=== PATIENT | female | born 1985 | race Caucasian/White ===

== ENCOUNTER 2017-03-17 12:14 | Observation (INO) | payer OTHER ==
[2017-03-17] MEDS ORDERED: NS 1,000 ML IV ONE (12:54)
--- NOTE | 2017-03-17 12:57 | EDPHY ---
HPI/HX/ROS/PE/MDM Narrative: CHIEF COMPLAINT: Vaginal bleeding HPI: The patient is a 31 y/o female complaining of vaginal bleeding since March 01. About 6 months ago she started taking the mini pill for control but she experienced constant nausea and discontinued taking it 3 months ago and has not taken control since. She had her last normal menstrual period January 17. Her menstrual period started about 10 days late on March 01. Immediately her menstrual bleeding was heavier than normal with more severe cramping and lots of clots. She was evaluated by internal medicine with no etiology identified. Her bleeding had almost stopped a few days ago but returned after she exercised. She has associated pain in the lower right quadrant. She has no other associated symptoms. She was once and went into labor at 30 weeks for unknown reasons. REVIEW OF SYSTEMS: Aside from elements discussed in the HPI, a comprehensive 10-point review of systems was reviewed and is negative. PMH: with labor at 30 weeks SOCIAL HISTORY: Lives in [place], , employed PHYSICAL EXAM: General:Patient is alert, in no acute distress. ENT:Eyes are normal to inspection. ENT inspection normal. Neck: Normal inspection. Full range of motion. Respiratory:No respiratory distress. Breath sounds normal bilaterally. Cardiovascular: Regular rate and rhythm. Strong peripheral pulses. Normal cap refill. Abdomen:The abdomen is nontender to palpation. There are no peritoneal signs. There are normal bowel sounds. Back: Normal to inspection. No tenderness to palpation. Skin: Normal color. No rash. Warm and dry. Extremities: Normal appearance. Full range of motion. Neuro: Oriented x3. Normal motor function. Normal sensory function. ED Course: Study: Ultrasound of the pelvis Indication: Prolonged vaginal bleeding Results: Ultrasound of the pelvis was obtained. The results of the study are: 5 cm complex right adnexal mass with moderate fluid consistent with a tubal . The study was read by the radiologist, Dr. Ochoa. I viewed the images myself on the PACS system. The US and positive beta-HCG indicate an ectopic is likely. [employer] paged. [id number]: Dr. Motley, [employer] responded and will evaluate the patient. I reassessed patient and informed her of the results of her workup. Patient remains comfortable and hemodynamically stable. MDM: This patient presents with signs and symptoms of ectopic , confirmed by US. OBGYN will admit. No signs of hemorrhagic shock, appendicitis, diverticulitis, IUP or molar . - Data Points Imaging Results: Imaging Impressions Pelvic/Renal Ultrasound 03/17/17 12:54 Impression: 1. Negative for intrauterine . 2. Mass between uterus and right ovary, suspicious of ectopic (tubal) . 3. Moderate amount of free fluid, probably blood, in the pelvis. I telephoned results to Dr. Crispin Mix at 1409 hours. Laboratory Results: Laboratory Results 03/17/17 13:00 03/17/17 13:00 03/17/17 03/17/17 03/17/17 13:00 13:00 13:00 WBC RBC Hgb Hct MCV MCH MCHC RDW Plt Count MPV Neut % (Auto) Lymph % (Auto) Wetzel % (Auto) Eos % (Auto) Baso % (Auto) Nucleat RBC Rel Count Absolute Neuts (auto) Absolute Lymphs (auto) Absolute Monos (auto) Absolute Eos (auto) Absolute Basos (auto) Absolute Nucleated RBC Immature Gran % Immature Gran # PT INR APTT Sodium 138 mEq/L mEq/L (134-144) Potassium 3.6 mEq/L mEq/L (3.5-5.2) Chloride 102 mEq/L mEq/L (97-110) Carbon Dioxide 24 mEq/l mEq/l (22-31) Anion Gap 12 mEq/L mEq/L (8-16) BUN 14 mg/dL mg/dL (7-23) Creatinine 0.8 mg/dL mg/dL (0.6-1.0) Estimated GFR > 60 Glucose 95 mg/dL mg/dL (70-100) Calcium 9.4 mg/dL mg/dL (8.5-10.4) Beta HCG, Qual POSITIVE Beta HCG, Quant 2729.40 mIU/mL H mIU/mL (0.00-4.83) 03/17/17 03/17/17 13:00 13:00 WBC 9.45 10^3/uL 10^3/uL (3.80-9.50) RBC 3.72 10^6/uL L 10^6/uL (4.18-5.33) Hgb 12.1 g/dL L g/dL (12.6-16.3) Hct 34.3 % L % (38.0-47.0) MCV 92.2 fL fL (81.5-99.8) MCH 32.5 pg pg (27.9-34.1) MCHC 35.3 g/dL g/dL (32.4-36.7) RDW 12.7 % % (11.5-15.2) Plt Count 228 10^3/uL 10^3/uL (150-400) MPV 9.0 fL fL (8.7-11.7) Neut % (Auto) 79.7 % H % (39.3-74.2) Lymph % (Auto) 12.7 % L % (15.0-45.0) Wetzel % (Auto) 5.9 % % (4.5-13.0) Eos % (Auto) 0.7 % % (0.6-7.6) Baso % (Auto) 0.5 % % (0.3-1.7) Nucleat RBC Rel Count 0.0 % % (0.0-0.2) Absolute Neuts (auto) 7.52 10^3/uL H 10^3/uL (1.70-6.50) Absolute Lymphs (auto) 1.20 10^3/uL 10^3/uL (1.00-3.00) Absolute Monos (auto) 0.56 10^3/uL 10^3/uL (0.30-0.80) Absolute Eos (auto) 0.07 10^3/uL 10^3/uL (0.03-0.40) Absolute Basos (auto) 0.05 10^3/uL 10^3/uL (0.02-0.10) Absolute Nucleated RBC 0.00 10^3/uL 10^3/uL (0-0.01) Immature Gran % 0.5 % % (0.0-1.1) Immature Gran # 0.05 10^3/uL 10^3/uL (0.00-0.10) PT 13.8 SEC SEC (12.0-15.0) INR 1.07 (0.83-1.16) APTT 22.2 SEC L SEC (23.0-38.0) Sodium Potassium Chloride Carbon Dioxide Anion Gap BUN Creatinine Estimated GFR Glucose Calcium Beta HCG, Qual Beta HCG, Quant Medications Given: Discontinued Medications Sodium Chloride (Ns) 1,000 mls @ 0 mls/hr IV EDNOW ONE; Wide Open PRN Reason: Protocol Stop: 03/17/17 12:55 Last Admin: 03/17/17 13:44 Dose: 1,000 mls General Time Seen by Provider: 03/17/17 12:43 Initial Vital Signs: Initial Vital Signs Temperature (C) 36.4 C 03/17/17 12:29 Heart Rate 91 03/17/17 12:29 Respiratory Rate 15 03/17/17 12:29 Blood Pressure 125/89 H 03/17/17 12:29 O2 Sat (%) 98 03/17/17 12:29 O2 Delivery Mode Room Air Allergies/Adverse Reactions: No Known Allergies Allergy (Unverified 03/17/17 12:26) Home Medications: Medication Instructions Recorded Herbals/Supplements -Info Only 1 ea PO DAILY 03/17/17 Departure - Departure Disposition: Home, Routine, Self-Care Clinical Impression: Ectopic Qualifiers: Location of ectopic : tubal Intrauterine status: without intrauterine Laterality: right Qualified Code(s): O00.101 - Right tubal without intrauterine Condition: Good Report Scribed for: Crispin Mix Report Scribed by: Luz Elena Wallace Date of Report: 03/17/17 Time of Report: 12:44 Physician Review and Approval Statement: Portions of this note were transcribed by an ED scribe. I personally performed the history, physical exam, and medical decision making; and confirm the accuracy of the information in the transcribed note.
[2017-03-17 13:09] LABS: % IMMATURE GRANULYOCYTES 0.5 % (0.0-1.1); ABSOLUTE IMMATURE GRANULOCYTES 0.05 10^3/uL (0.00-0.10); ADD DIFF? NO; ADD MORPH? NO; ADD SCAN? NO; ATYPICAL LYMPHOCYTE FLAG 0 (0-99); FRAGMENT RBC FLAG 0 (0-99); HEMATOCRIT 34.3 % (38.0-47.0); HEMOGLOBIN 12.1 g/dL (12.6-16.3); LEFT SHIFT FLG 0 (0-99); LIPEMIA HEMOLYSIS FLAG 90 (0-99); MEAN CELL HEMOGLOBIN 32.5 pg (27.9-34.1); MEAN CELL HEMOGLOBIN CONCENTR. 35.3 g/dL (32.4-36.7); MEAN CELL VOLUME 92.2 fL (81.5-99.8); PLATELET CLUMPS FLAG 10 (0-99); PLATELET COUNT 228 10^3/uL (150-400); RED BLOOD CELL COUNT 3.72 10^6/uL (4.18-5.33); RED CELL DISTRIBUTION WIDTH 12.7 % (11.5-15.2)
[2017-03-17 13:19] LABS: APTT 22.2 SEC (23.0-38.0); INR 1.07 (0.83-1.16); PROTIME(PATIENT) 13.8 SEC (12.0-15.0)
[2017-03-17 13:30] LABS: ANION GAP 12 mEq/L (8-16); CALCIUM 9.4 mg/dL (8.5-10.4); CARBON DIOXIDE 24 mEq/l (22-31); CHLORIDE 102 mEq/L (97-110); CREATININE 0.8 mg/dL (0.6-1.0); GLOMERULAR FILTRATION RATE > 60; GLUCOSE 95 mg/dL (70-100); POTASSIUM 3.6 mEq/L (3.5-5.2); SODIUM 138 mEq/L (134-144)
--- NOTE | 2017-03-17 21:58 | GHP ---
[f rep st] PREOP HISTORY AND PHYSICAL DATE OF ADMISSION: 03/17/2017 ADMISSION DIAGNOSIS: Suspected ectopic . HISTORY OF PRESENT ILLNESS: The patient is a 31-year-old, 2, para 1-0-0-1, who presented to the emergency room after sudden onset of severe pain in the right lower quadrant earlier today. The patient is still breast-feeding. In September, she decided to get on more reliable contraception and star darrel the mini-pill. She was on the mini-pill for 3 months and then stopped secondary to nausea. She had a regular menstrual cycle on January 17, and her cycle after that was slightly late, so she too k a test at the end of January the beginning of February, which were all negative. She beg an bleeding on March 01. Her period was a bit more painful than normal, but she had just started a parasite cleanse and thought it was the parasites leaving her body. The patient had an episode of s evere right-sided pain on March 05. The pain resolved on its own. The next day she passed 2 modera te-sized globs of tissue. The patient did see a primary care doctor who said he did not know what th e tissue was, but maybe she had a tubal that had miscarried. He did not order an ultrasoun d or do any lab. The patient did not take a test at any point during this time. The patie nt stopped bleeding after 2 weeks. She began having increased pain again this morning and brownish b leeding and discomfort. She called her to come home from work and was found to be somewhat p dana, diaphoretic, and experiencing 9/10 pain, but by the time they got to the emergency room, her patricia n had essentially resolved to a 2/10 on the pain scale. She did not necessitate any pain medication. She was evaluated in the emergency room and continued to be essentially pain-free except for when s he pushed on her right lower quadrant. The patient is now having some bright red bleeding, but small amounts, but overall is hungry, wanting to eat, not uncomfortable and resting with her son and her h usband. We had a long discussion about management options of expectant management as an outpatient v ersus proceeding to the operating room versus inpatient observation and the patient elected to procee d with inpatient observation and will be re-evaluated in the morning. MEDICAL HISTORY: Negative. MEDICATIONS: Probiotics. SURGERY: section. ALLERGIES: No known drug allergies. SOCIAL HISTORY: Patient is . She denies tobacco or drug use. She does drink alcohol sociall y. FAMILY MEDICAL HISTORY: Noncontributory. CORE FILER HISTORY: She does have a history of regular cycles. She is a 2, para 1-0-0-1. She h ad a primary low transverse section in 2014 at 30 weeks gestation. She initially had prenat dc care at [facility] for her 1st new OB visit then transferred to a home wood tile installation helper. S he then was on a with her in [place] at 30 weeks and went into labor. The stopped the labor for 2 days with magnesium sulfate and then status became non-reassuring and s he had an emergency at 30 weeks and they stayed in the NICU for 5 weeks with that baby. Th at baby is doing well. Current is newly diagnosed and is possible ectopic . The patient does have a remote history of chlamydia when she was a teenager. She denies any history of a ny abnormal Pap smears or other sexually transmitted diseases. PHYSICAL EXAMINATION: VITAL SIGNS: Stable. Her blood pressure is ranging between 103-125 and 60-89 , her heart rate is 75-99. GENERAL APPEARANCE: Alert and oriented x3. No acute distress. PSYCH: She has appropriate affect. MUSCULOSKELETAL: Grossly intact. NEURO: Grossly intact. NECK: Mobil e and supple. HEART: Rate is regular, regular. LUNGS: Clear to auscultation bilaterally. ABDOMEN : Soft, nondistended, nontender, and there is no guarding or rebound. EXTREMITIES: Reveal no calf tenderness or edema. PELVIC: Reveals a mobile midposition uterus. There was a small amount of cerv ical motion tenderness, but patient did not complain of any pain following the pelvic exam. LABS: Her white blood count is 9.4, her hemoglobin is 12.1, her hematocrit is 34.3, her platelets ar e 228. Her quantitative HCG is 2729.4. Pelvic ultrasound was obtained, which shows uterus measuring 5.8 x 3.6 x 4.8 cm with an endometrial stripe of thick for 4 mm. There is a mild amount of fluid wi thin the uterine canal. Her right ovary measures 3.3 x 0.1 x 1.9 cm with a 5.3 x 5.3 x 5.1 cm irregu lar heterogeneous mass between the uterus and the right ovary. The left ovary measures 2.5 x 1.9 x 3 .0 cm. There are possible free fluid and blood in the pelvis. ASSESSMENT AND PLAN: A 31-year-old 2, para 1-0-0-1 who has a probable ectopic . We had a long discussion with the patient and her about management options. We discussed carolina tsai with a diagnostic laparoscopy and salpingectomy versus close observation and expected managemen t. Given the fact that this is the 1st set of HCG labs that we have obtained on the patient and the patient's vital signs are completely stable, she is pain-free at this time and she is hemodynamically stable and her hematocrit is stable as patient had her blood work done a week ago, she elected to pr oceed with expected management in-house. We discussed that if at any point her pain resolves or ford ges her mind, we will go to the operating room to do diagnostic laparoscopy. We discussed the only w ay to definitively find out was going on and to do a laparoscopy, but that is not without its risks. Both she and her are in agreement to follow with close observation, recheck HCG and H and H in the morning. Proceed to the operating room tonight if there is any increase in pain and then reas sess in the morning and make a plan from them. The risks and benefits of all options were reviewed e xtensively with the patient. We have discussed that I would not offer her methotrexate at this time, and we will manage the patient very closely. /[id number]/MODL
[2017-03-18 06:22] LABS: HEMATOCRIT 31.4 % (38.0-47.0); HEMOGLOBIN 11.1 g/dL (12.6-16.3)
--- NOTE | 2017-03-18 07:55 | SOAPPROG ---
SOAP Progress Note Assessment/Plan: Assessment: Plan: Subjective: patient is doing well. rested comfortably overnight. pain in rlq 2/. labs reviewed. h and lisa has decreased from 34 to 31 and hcg has increased from 2700 to 2900. based on ultrasound and lab findings I have recommended we proceed with diagnostic laparoscopy and probable salpingectomy. patient and are agreeable. Objective: Vital Signs Temp Pulse Resp BP Pulse Ox 36.6 C 91 16 99/63 L 95 03/18/17 06:16 03/18/17 06:16 03/18/17 06:16 03/18/17 06:16 03/18/17 06:16 Laboratory Results 03/18/17 06:05 03/17/17 03/18/17 03/19/17 05:59 05:59 05:59 Intake Total 1000 Balance 1000 PT 13.8 SEC (12.0-15.0) 03/17/17 13:00 INR 1.07 (0.83-1.16) 03/17/17 13:00 Physical Exam - Physical Exam General Appearance: WD/WN, alert, no apparent distress Neck: non-tender, full range of motion Respiratory: chest non-tender, lungs clear, normal breath sounds Cardiac/Chest: normal peripheral pulses, regular rate, rhythm Abdomen: normal bowel sounds, soft Skin: normal color, warm/dry Extremities: normal range of motion, non-tender, normal inspection, normal capillary refill Neuro/Psych: no motor/sensory deficits, alert, normal mood/affect, oriented x 3 ICD10 Worksheet Patient Problems: Problems Problem Status Onset Ectopic Acute
[2017-03-18] MEDS ORDERED: ceFAZolin 2 GM in D5W 100 ML IV ONE (10:58)
[2017-03-18] MEDS ORDERED: ceFAZolin 2 GM/DEXTROSE 100 ML IV ONE (11:15)
[2017-03-18 11:40] VITALS: PULSE 83
[2017-03-18] MEDS ORDERED: ceFAZolin 2 GM/SWFI 20 ML SYR IVP ONE (11:42)
[2017-03-18] MEDS ORDERED: LR 1,000 ML IV ONE (11:43)
[2017-03-18] MEDS ORDERED: BUPIVACAINE/EPI 0.5% 30 ML SDV ONE (12:23)
[2017-03-18] MEDS ORDERED: MIDAZOLAM 2 MG/2 ML VIAL ONE (12:26)
[2017-03-18] MEDS ORDERED: MIDAZOLAM 2 MG/2 ML VIAL IVP ONE (12:27)
--- NOTE | 2017-03-18 12:27 | PDANEPAE ---
ANE History of Present Illness 31 YO FEMALE with ectopic for diag lap and salpingectomy. ANE Past Medical History - Cardiovascular History Hx Hypertension: No Hx Arrhythmias: No Hx Chest Pain: No Hx Palpitations: No - Pulmonary History Hx COPD: No Hx Asthma/Reactive Airway Disease: No Hx Recent Upper Respiratory Infection: No Hx Sleep Apnea: No Sleep Apnea Screening Result - Last Documented: Negative - Endocrine History Hx Diabetes: No Hypothyroid: No - Renal History Hx Renal Disorders: No - Liver History Hx Hepatic Disorders: No - Neurological & Psychiatric Hx Hx Neurological and Psychiatric Disorders: No - GI History Hx Gastrointestinal Disorders: No ANE Review of Systems Review of systems is: negative Review of Systems: - Exercise capacity METS (RN): 4 METS - Systems Constitutional: Reports: no symptoms Cardiac: Reports: no symptoms Respiratory: Reports: no symptoms Gastrointestinal: Reports: abdominal pain ANE Patient History - Allergies Allergies/Adverse Reactions: No Known Allergies Allergy (Unverified 03/17/17 12:26) - Home Medications Home medications: home medication list seen and reviewed Home Medications: Herbals/Supplements -Info Only 1 ea PO DAILY 03/17/17 [Last Taken Unknown] - NPO status NPO Since - Liquids (Date): 03/18/17 NPO Since - Liquids (Time): 00:00 NPO Since - Solids (Date): 03/18/17 NPO Since - Solids (Time): 00:00 - Anes Hx Anes Hx: no prior problems - Smoking Hx Smoking Status: Never smoked Marijuana use: No - Family Anes Hx Family Anes Hx: neg - N/A ANE Labs/Vital Signs - Labs Result Diagrams: 03/18/17 06:05 03/17/17 13:00 - Labs - CBC HGB: anemia worse today than yesterday - Vital Signs Blood Pressure: 120/60 Heart Rate: 83 Respiratory Rate: 14 O2 Sat (%): 96 Height: 165.1 cm Weight: 53.97 kg ANE Physical Exam - Airway Neck exam: FROM Mallampati Score: Class 2 - Pulmonary Pulmonary: clear to auscultation - Cardiovascular Cardiovascular: regular rate and rhythym, systolic murmur - ASA Status ASA Status: II ANE Anesthesia Plan Anesthesia Plan: general endotracheal anesthesia
[2017-03-18] MEDS ORDERED: PROPOFOL/EMULSION 500 MG/50 ML BOTTLE IV ONE (12:29)
[2017-03-18] MEDS ORDERED: fentaNYL 100 MCG/2 ML INJ ONE ×3 (12:29→14:44)
[2017-03-18] MEDS ORDERED: KETOROLAC 30 MG/1 ML SDV ONE (13:10)
[2017-03-18] MEDS ORDERED: DEXAMETHASONE 4 MG/ML VIAL ONE ×2 (13:10→13:11)
[2017-03-18] MEDS ORDERED: ONDANSETRON 4 MG/2 ML VIAL ONE (13:10)
[2017-03-18] MEDS ORDERED: ROCURONIUM 50 MG/5 ML VIAL ONE (13:10)
[2017-03-18] MEDS ORDERED: LIDOCAINE 2% 5 ML SDV ONE (13:11)
[2017-03-18] MEDS ORDERED: PROMETHAZINE HCL 25 MG/ML INJ IVP PRN (14:07)
[2017-03-18] MEDS ORDERED: OXYCODONE/APAP 5/325 TAB PO PRN (14:07)
[2017-03-18] MEDS ORDERED: fentaNYL 100 MCG/2 ML INJ IVP PRN (14:07)
[2017-03-18] MEDS ORDERED: ALBUTEROL 3 ML DEYVIAL IH PRN (14:07)
[2017-03-18] MEDS ORDERED: LR 500 ML IV PRN (14:07)
[2017-03-18] MEDS ORDERED: NALOXONE HCL 0.4 MG/ML INJ IVP PRN (14:07)
[2017-03-18] MEDS ORDERED: NEOSTIGMINE METHYLSULFATE 3 MG/3 ML SYR ONE (14:09)
[2017-03-18] MEDS ORDERED: GLYCOPYRROLATE 0.2 MG/1 ML VIAL ONE (14:22)
--- NOTE | 2017-03-18 14:45 | POSTOPPROG ---
Post Op Note Date of Operation: 03/18/17 Surgeon: Caitlin Lazo Preparator: Lily Gray MD Anesthesiologist: Geraldine White MD Anesthesia: GET(General Endotracheal) Pre-op Diagnosis: right ectopic Post-op Diagnosis: same, with omental adhesions Indication: RLQ pain with right ectopic pregn, hct drop 34-31 and hcg rising Procedure: LSC right salpingectomy, Lysis of omental adhesions Findings: mass of clot/dilated right tube/ectopic 6-7 cms, nl ureters, ov bilat - adh Inf/Abcess present in the surg proc area at time of surgery?: No Depth: Organ Space EBL: 50-100 Total fluids administered: 800ml Specimen(s): right tube/ectopic
[2017-03-18 15:09] VITALS: TEMP 97.7
[2017-03-18 15:44] VITALS: RESP 16
[2017-03-18 16:02] VITALS: BP 95/53; O2SAT 94
== END 2017-03-18 16:30 | disposition home or self-care (01) ==
LOC: FLD 19:38
PROVIDERS: ADMIT Obstetrics & Gynecology; ATTEND Obstetrics & Gynecology
PROC: 0UT54ZZ Resection of Right Fallopian Tube, Percutaneous Endoscopic Approach (ICD-10-PCS; principal; 2017-03-17)
PROC: 10T24ZZ Resection of Products of Conception, Ectopic, Percutaneous Endoscopic Approach (ICD-10-PCS; principal; 2017-03-17)
PROC: 0DNU4ZZ Release Omentum, Percutaneous Endoscopic Approach (ICD-10-PCS; principal; 2017-03-17)
DX: O00.101 Right tubal pregnancy without intrauterine pregnancy (principal); R10.31 Right lower quadrant pain
CPT/HCPCS: 59151; 76856; G0378; J0690; J1100; J1885; J2250; J2405; J2704; J2710; J3010

== ENCOUNTER 2018-10-07 04:24 | Emergency (ER) | payer OTHER | END 2018-10-07 05:44 | disposition home or self-care (01) ==